=== PATIENT | male | born 2000 | race Caucasian/White ===

== ENCOUNTER 2021-09-30 21:33 | Emergency (ER) | payer OTHER ==
[~2021-09-30 21:33] MED LIST: IBUPROFEN600 MG PO; ONDANSETRON ODT4 MG PO; PANTOPRAZOLE SO40 MG PO; VISTARIL 50 MG50 MG PO
== END 2021-09-30 22:01 | disposition left against medical advice (07) ==
LOC: ER1 21:33
DX: Z53.21 Procedure and treatment not carried out due to patient leaving prior to being seen by health care provider (principal)